=== PATIENT | male | born 1980 | race Caucasian/White ===

== ENCOUNTER 2017-01-13 16:33 | Inpatient (IN) | payer OTHER ==
[~2017-01-13] VITALS: Ht 185.4 cm; Wt 94.0 kg
[2017-01-13 17:57] LABS: EOSINOPHIL (%) 6.2 % (0-5); EOSINOPHIL COUNT 0.3 K/uL (0-0.3); HEMATOCRIT 38.9 % (38.0-50.0); IMMATURE GRANULOCYTE (%) 0.2 % (0.0-0.7); INSTRUMENT ABS NEUTROPHIL CT 3.2 K/uL; LYMPHOCYTE COUNT 1.3 K/uL (1.0-2.8); MCH 27.6 PG (29.0-34.0); MCHC 32.9 G/DL (30.0-36.0); MCV 83.8 FL (86-99); MEAN PLAT.VOLUME 9.2 uM^3 (9.0-12.4); MONOCYTE (%) 10.3 % (3-12); MONOCYTE COUNT 0.6 K/uL (0-0.8); NEUTROPHIL (%) 58.6 % (45-76); NEUTROPHIL COUNT 3.2 K/uL (1.8-6.4); PLATELET COUNT 270 K/uL (156-360); RBC DIS.WIDTH-CV 13.9 % (11.8-14.6); RBC DIS.WIDTH-SD 42.3 % (39-53); RED BLOOD COUNT 4.64 M/uL (4.00-5.50); WHITE BLOOD COUNT 5.5 K/uL (4.1-10.2)
[2017-01-13 18:06] LABS: CHLORIDE 106 mEq/L (99-109); POTASSIUM 4.2 mEq/L (3.7-5.4); SODIUM 140 mEq/L (136-147)
[2017-01-13 18:08] LABS: GLUCOSE 112 mg/dL (70-99)
[2017-01-13 18:09] LABS: ANION GAP 5 MEQ/L (2-14)
[2017-01-13 18:10] LABS: TOTAL BILIRUBIN 0.4 mg/dL (0.0-1.0)
[2017-01-13 18:11] LABS: ALKALINE PHOSPHATASE 71 IU/L (3-129)
[2017-01-13 18:12] LABS: GFR ESTIMATE (CALCULATED) > 59 mL/min/
[2017-01-13 18:13] LABS: UREA NITROGEN (BUN) 11 mg/dL (9-23)
[2017-01-13 18:41] LABS: INTER. NORMALIZED RATIO 1.1; PTT 29.6 (25-32)
[2017-01-13] MEDS ORDERED: DAILY VITAMIN1 EAC4 PO (20:29)
[2017-01-13] MEDS ORDERED: CORTIZONE-10 PL57 GM TP (20:30)
[2017-01-13] MEDS ORDERED: PAIN RELIEVER PO (20:31)
[2017-01-13] MEDS ORDERED: TRAMADOL HCL50 MG PO (20:31)
[2017-01-13] MEDS ORDERED: FERROUS SULFAT325 MG PO (20:32)
[2017-01-13] MEDS ORDERED: COLACE100 MG PO (20:32)
[2017-01-13] MEDS ORDERED: PRILOSEC20 MG PO (20:33)
[2017-01-13] MEDS ORDERED: EFFEXOR75 MG PO (20:33)
[2017-01-13 23:37] LABS: HEMATOCRIT 39.6 % (38.0-50.0); MCH 27.7 PG (29.0-34.0); MCHC 32.8 G/DL (30.0-36.0); MCV 84.4 FL (86-99); MEAN PLAT.VOLUME 8.9 uM^3 (9.0-12.4); PLATELET COUNT 263 K/uL (156-360); RBC DIS.WIDTH-SD 42.9 % (39-53); RED BLOOD COUNT 4.69 M/uL (4.00-5.50); WHITE BLOOD COUNT 6.6 K/uL (4.1-10.2)
[2017-01-14] VITALS (7 sets, daily range): BP systolic 118–138; BP diastolic 67–82
[2017-01-14 01:08] LABS: MCV 84.6 FL (86-99)
[2017-01-14 09:54] LABS: HEMATOCRIT 36.1 % (38.0-50.0); MCV 85.1 FL (86-99)
[2017-01-14 10:20] LABS: ANION GAP 9 MEQ/L (2-14); CHLORIDE 106 MEQ/L (99-109); GFR ESTIMATE (CALCULATED) > 59 mL/min/; GLUCOSE 91 mg/dL (70-99); POTASSIUM 3.8 MEQ/L (3.7-5.4); SAMPLE HEMOLYSIS CHECK 0; SAMPLE ICTERIC CHECK 0; SAMPLE LIPEMIA CHECK 0; SODIUM 140 MEQ/L (136-147); UREA NITROGEN (BUN) 9 mg/dL (9-23)
[2017-01-14 16:19] LABS: HEMATOCRIT 35.8 % (38.0-50.0); MCV 86.1 FL (86-99)
[2017-01-15 03:52] VITALS: BP 117/63
[2017-01-15 07:52] LABS: MCH 27.6 PG (29.0-34.0); MCHC 32.2 G/DL (30.0-36.0); MCV 85.7 FL (86-99); MEAN PLAT.VOLUME 9.6 uM^3 (9.0-12.4); PLATELET COUNT 230 K/uL (156-360); RBC DIS.WIDTH-CV 13.8 % (11.8-14.6); WHITE BLOOD COUNT 5.7 K/uL (4.1-10.2)
[2017-01-15 08:23] LABS: ANION GAP 9 MEQ/L (2-14); CHLORIDE 105 MEQ/L (99-109); MAGNESIUM 1.8 mg/dl (1.3-2.7); POTASSIUM 3.9 MEQ/L (3.7-5.4); SAMPLE HEMOLYSIS CHECK 0; SAMPLE ICTERIC CHECK 0; SAMPLE LIPEMIA CHECK 0; SODIUM 141 MEQ/L (136-147)
[2017-01-15 08:26] VITALS: BP 119/70
[2017-01-15 08:28] LABS: GFR ESTIMATE (CALCULATED) > 59 mL/min/; GLUCOSE 89 mg/dL (70-99); UREA NITROGEN (BUN) 12 mg/dL (9-23)
[2017-01-15 11:48] VITALS: BP 119/70
== END 2017-01-15 13:05 | DRG 379 ==
LOC: EDBD 16:33 → EME 16:33 → 5SOUTH 22:53 → EDOF 22:53 → 5SOUTH 23:59
PROVIDERS: Emergency Medicine; Hospitalist; Internal Medicine
PROC: 0DJ08ZZ Inspection of Upper Intestinal Tract, Via Natural or Artificial Opening Endoscopic (ICD-10-PCS; principal; 2017-01-14)
DX: K92.0 Hematemesis (principal); K92.2 Gastrointestinal hemorrhage, unspecified; R10.13 Epigastric pain; R10.9 Unspecified abdominal pain; Z98.84 Bariatric surgery status; Z83.79 Family history of other diseases of the digestive system
CPT/HCPCS: 71010; 74000; 74177; 80048; 80053; 82140; 83605; 83735; 85014; 85018; 85025; 85027; 85610; 85730; 86900; 86901; 99281; 99285; C9113; J1170; J2270; J2405; J3010; J7030; J7050

== ENCOUNTER 2017-02-03 20:59 | Emergency (ER) | payer OTHER ==
[~2017-02-03] VITALS: Ht 185.4 cm; Wt 94.5 kg
[~2017-02-03 20:59] MED LIST: COLACE100 MG PO; CORTIZONE-10 PL57 GM TP; DAILY VITAMIN1 EAC4 PO; EFFEXOR75 MG PO; FERROUS SULFAT325 MG PO; PAIN RELIEVER PO; PRILOSEC20 MG PO; TRAMADOL HCL50 MG PO
[2017-02-03 23:11] VITALS: BP 131/83
== END 2017-02-03 23:12 ==
LOC: EME 20:59
DX: S60.052A Contusion of left little finger without damage to nail, initial encounter (principal); W22.8XXA Striking against or struck by other objects, initial encounter; Y93.B2 Activity, push-ups, pull-ups, sit-ups; Y92.39 Other specified sports and athletic area as the place of occurrence of the external cause; Y92.148 Other place in prison as the place of occurrence of the external cause
CPT/HCPCS: 73140; 99281; 99283

== ENCOUNTER 2017-02-04 14:51 | Emergency (ER) | payer OTHER ==
[2017-02-04 15:23] LABS: EOSINOPHIL (%) 1.8 % (0-5); EOSINOPHIL COUNT 0.1 K/uL (0-0.3); HEMATOCRIT 36.5 % (38.0-50.0); IMMATURE GRANULOCYTE (%) 0.3 % (0.0-0.7); INSTRUMENT ABS NEUTROPHIL CT 4.3 K/uL; LYMPHOCYTE COUNT 1.5 K/uL (1.0-2.8); MCH 27.4 PG (29.0-34.0); MCHC 31.8 G/DL (30.0-36.0); MCV 86.3 FL (86-99); MEAN PLAT.VOLUME 9.1 uM^3 (9.0-12.4); MONOCYTE COUNT 0.5 K/uL (0-0.8); NEUTROPHIL COUNT 4.3 K/uL (1.8-6.4); PLATELET COUNT 261 K/uL (156-360); RBC DIS.WIDTH-CV 14.2 % (11.8-14.6); RED BLOOD COUNT 4.23 M/uL (4.00-5.50); WHITE BLOOD COUNT 6.5 K/uL (4.1-10.2)
[2017-02-04 15:32] LABS: AMYLASE 35 IU/L (1-118); CHLORIDE 109 mEq/L (99-109)
[2017-02-04 15:33] LABS: SODIUM 145 mEq/L (136-147)
[2017-02-04 15:34] LABS: GLUCOSE 85 mg/dL (70-99)
[2017-02-04 15:36] LABS: ANION GAP 10 MEQ/L (2-14)
[2017-02-04 15:37] LABS: SERUM ETHYL ALCOHOL < 10 mg/dL
[2017-02-04 15:38] LABS: GFR ESTIMATE (CALCULATED) > 59 mL/min/
[2017-02-04 15:39] LABS: UREA NITROGEN (BUN) 11 mg/dL (9-23)
[2017-02-04 15:41] LABS: LIPASE 21 U/L (1.0-51.0)
== END 2017-02-04 18:10 ==
LOC: TRA 14:51
PROVIDERS: Emergency Medicine
PROC: 2W3FX1Z Immobilization of Left Hand using Splint (ICD-10-PCS; principal; 2017-02-04)
PROC: 0HQ7XZZ Repair Abdomen Skin, External Approach (ICD-10-PCS; principal; 2017-02-04)
DX: S31.119A Laceration without foreign body of abdominal wall, unspecified quadrant without penetration into peritoneal cavity, initial encounter (principal); S62.617A Displaced fracture of proximal phalanx of left little finger, initial encounter for closed fracture; X99.9XXA Assault by unspecified sharp object, initial encounter; Y92.149 Unspecified place in prison as the place of occurrence of the external cause; F17.200 Nicotine dependence, unspecified, uncomplicated
CPT/HCPCS: 71260; 73130; 74177; 80048; 81003; 82150; 83690; 85025; 86900; 86901; 99281; 99285; G0480; J0690; J3010